=== PATIENT | male | born 1970 | race Caucasian/White ===

== ENCOUNTER 2018-05-24 11:43 | Inpatient (IN) | payer MEDICAID ==
[~2018-05-24] VITALS: Ht 172.7 cm; Wt 80.7 kg
[2018-05-24] MEDS ORDERED: CLOTRIMAZOLE 1% CREAM 30GM TOP STA (12:27)
[2018-05-24] MEDS ORDERED: ASPIRIN 81MG TABLET PO ONE (12:30)
[2018-05-24] MEDS ORDERED: NITROGLYCERIN 0.4MG TABLET SL SL PRN (12:30)
[2018-05-24] MEDS ORDERED: CEFTRIAXONE 1 G PREMIX 50 ML IV ONE (12:30)
[2018-05-24] MEDS ORDERED: AZITHROMYCIN 500 MG TABLET PO ONE (12:30)
[2018-05-24 13:10] LABS: CLARITY URINE CLEAR (CLEAR); COLOR URINE YELLOW (YELLOW); KETONES URINE NEGATIVE (NEGATIVE); LEUKOCYTE ESTERASE URINE NEGATIVE (NEGATIVE); NITRITE URINE NEGATIVE (NEGATIVE); OCCULT BLOOD URINE NEGATIVE (NEGATIVE); PROTEIN URINE NEGATIVE (NEGATIVE); SPECIFIC GRAVITY URINE 1.003 (1.005-1.030); UROBILINOGEN URINE 0.2 E.U./dL (0.2-1.0)
[2018-05-24 13:15] LABS: CHLORIDE 104 mEq/L (98-107)
[2018-05-24 13:21] LABS: HEMOGLOBIN. 11.3 g/dL (14.0-18.0); MEAN CORPUSCULAR HEMOGLOBIN 32.6 pg (28.0-32.0); MEAN CORPUSCULAR VOLUME 95.3 fL (80.0-94.0); MEAN PLATELET VOLUME 8.5 fl (7.4-10.4); PLATELET 79 x1000/uL (130-400); RED BLOOD CELL COUNT 3.46 mill/uL (4.7-6.1); RED CELL DISTRIBUTION WIDTH 15.2 % (11.6-14.6)
[2018-05-24 13:23] LABS: D-DIMER 1.09 mg/L FEU (<0.50); PARTIAL THROMBOPLASTIN TIME 25.2 sec (23.4-31.0)
[2018-05-24 14:17] LABS: NUCLEATED RED BLOOD CELLS 1 /100 WBC; PLATELET ESTIMATE DECREASED
[2018-05-24] MEDS ORDERED: IOHEXOL-300 100 ML BOTTLE ONE (15:35)
[2018-05-24] MEDS ORDERED: REGADENOSON 0.4 MG/5 ML IV SCH (16:00)
[2018-05-24 16:44] VITALS: BP 113/75
[2018-05-24] MEDS ORDERED: HYDROCODONE/ACETAMINOPHEN 5/325MG TABLET PO PRN (17:30)
[2018-05-24] MEDS ORDERED: LORAZEPAM 0.5MG TABLET PO PRN (17:30)
[2018-05-24] MEDS ORDERED: MAGNESIUM/ALUMINUM HYDROXIDE/SIMETHICONE 30ML UDC PO PRN (17:30)
[2018-05-24] MEDS ORDERED: ACETAMINOPHEN 650MG SUPP PR PRN (17:30)
[2018-05-24] MEDS ORDERED: ONDANSETRON HCL 4MG/2ML VIAL IV PRN (17:30)
[2018-05-24] MEDS ORDERED: DIPHENHYDRAMINE 50MG/ML VIAL IV PRN (17:30)
[2018-05-24] MEDS ORDERED: ACETAMINOPHEN 325MG TABLET PO PRN (17:30)
[2018-05-24] MEDS ORDERED: HYDROCODONE/ACETAMINOPHEN 10/325MG TABLET PO PRN (17:30)
[2018-05-24] MEDS ORDERED: DOCUSATE SODIUM 100MG CAPSULE PO PRN (17:30)
[2018-05-24] MEDS ORDERED: GUAIFENESIN 200MG/10ML SUGAR FREE UDC PO PRN (17:30)
[2018-05-24] MEDS ORDERED: ACETAMINOPHEN 650MG/20.3ML UDC GT PRN (17:30)
[2018-05-24] MEDS ORDERED: ONDANSETRON 4MG ODT PO PRN (18:15)
[2018-05-24 20:00] VITALS: BP 108/60
[2018-05-24] MEDS: IPRATROPIUM/ALBUTEROL 0.5-3(2.5)MG/3ML NEB INH SCH (21:21)
[2018-05-24 22:21] LABS: CREATINE KINASE MB FRACTION 1.2 ng/mL (0.5-3.6)
[2018-05-25 00:13] VITALS: BP 106/50
[2018-05-25] MEDS: IPRATROPIUM/ALBUTEROL 0.5-3(2.5)MG/3ML NEB INH SCH ×3 (02:48→15:41)
[2018-05-25 04:00] VITALS: BP 100/56
[2018-05-25 07:31] LABS: HEMATOCRIT. 32.6 % (42.0-52.0); HEMOGLOBIN. 11.2 g/dL (14.0-18.0); MEAN CORPUSCULAR HEMOGLOBIN 32.9 pg (28.0-32.0); MEAN CORPUSCULAR VOLUME 95.6 fL (80.0-94.0); MEAN PLATELET VOLUME 8.4 fl (7.4-10.4); PLATELET 61 x1000/uL (130-400); RED BLOOD CELL COUNT 3.42 mill/uL (4.7-6.1); RED CELL DISTRIBUTION WIDTH 15.2 % (11.6-14.6)
[2018-05-25 08:00] VITALS: BP 117/61
[2018-05-25 08:01] LABS: CHLORIDE 104 mEq/L (98-107)
[2018-05-25 08:14] LABS: LDL CHOLESTEROL 98 mg/dL (5-100)
[2018-05-25 08:16] LABS: CREATINE KINASE 62 IU/L (39-308); HDL CHOLESTEROL 72 mg/dL (40-59); T4 FREE 0.82 ng/dL (0.76-1.46)
[2018-05-25] MEDS ORDERED: REGADENOSON 0.4 MG/5 ML IV ONE (10:03)
[2018-05-25] MEDS ORDERED: LEVOFLOXACIN 250MG TABLET PO SCH (11:00)
[2018-05-25] MEDS ORDERED: ASPIRIN 81MG EC TABLET PO SCH (11:00)
[2018-05-25 12:00] VITALS: BP 121/68
[2018-05-25 12:46] LABS: PLATELET ESTIMATE DECREASED
[2018-05-25] MEDS ORDERED: ASPI-1158 PO (15:52)
[2018-05-25] MEDS ORDERED: LEVO250T2 PO (15:52)
[2018-05-25 16:00] VITALS: BP 118/70
[2018-05-25 16:10] VITALS: BP 141/75
[2018-05-27 04:17] LABS: CHLAMYDIA TRACHOMATIS NAA Negative (Negative); NEISSERIA GONORRHOEAE NAA Negative (Negative)
== END 2018-05-25 17:54 | disposition home or self-care (01) | DRG 463 ==
LOC: ER 11:43 → 7WST 15:29 → EDBEDREQ 15:31 → ENRESERV 15:47
PROVIDERS: ADMIT Internal Medicine; ATTEND Internal Medicine
DX: N39.0 Urinary tract infection, site not specified (principal); J18.9 Pneumonia, unspecified organism; C85.90 Non-Hodgkin lymphoma, unspecified, unspecified site; K52.1 Toxic gastroenteritis and colitis; I24.9 Acute ischemic heart disease, unspecified; A64 Unspecified sexually transmitted disease; I11.9 Hypertensive heart disease without heart failure; R79.1 Abnormal coagulation profile; D72.825 Bandemia; R21 Rash and other nonspecific skin eruption; T45.1X5A Adverse effect of antineoplastic and immunosuppressive drugs, initial encounter; B37.9 Candidiasis, unspecified; Z82.3 Family history of stroke; Z82.49 Family history of ischemic heart disease and other diseases of the circulatory system; Z83.3 Family history of diabetes mellitus; Z92.21 Personal history of antineoplastic chemotherapy; Y92.89 Other specified places as the place of occurrence of the external cause
CPT/HCPCS: 36415; 71045; 71275; 78452; 80048; 80053; 80061; 81003; 82040; 82550; 82553; 83605; 83690; 83880; 84145; 84439; 84443; 84481; 84484; 85025; 85379; 85610; 85730; 86592; 87040; 87077; 87086; 87186; 87491; 87591; 93005; 93017; 93306; 93970; 94640; 96365; 96366; 99285; A9500; J0696; J2785; J7620; Q9967

== ENCOUNTER 2019-09-01 17:21 | Emergency (ER) | payer MEDICAID ==
[~2019-09-01] VITALS: Ht 172.7 cm; Wt 83.0 kg
[~2019-09-01 17:21] MED LIST: ASPI-1158 PO; LEVO250T2 PO
[2019-09-01 17:43] VITALS: BP 119/77
== END 2019-09-01 18:45 | disposition left against medical advice (07) ==
LOC: ER 17:21
DX: Z53.21 Procedure and treatment not carried out due to patient leaving prior to being seen by health care provider (principal)

== ENCOUNTER 2019-09-01 22:18 | Emergency (ER) | payer MEDICAID ==
[~2019-09-01] VITALS: Ht 172.7 cm; Wt 82.0 kg
[2019-09-02] MEDS ORDERED: KETOROLAC 60MG/2ML VIAL IM ONE (04:45)
[2019-09-02 06:31] VITALS: BP 121/67
== END 2019-09-02 06:44 | disposition home or self-care (01) ==
LOC: ER 22:18
DX: L03.113 Cellulitis of right upper limb (principal); Z85.79 Personal history of other malignant neoplasms of lymphoid, hematopoietic and related tissues; Z98.890 Other specified postprocedural states
CPT/HCPCS: 73090; 96372; 99283; J1885